=== PATIENT | female | born 1995 | race Caucasian/White ===

== ENCOUNTER 2020-08-03 16:59 | Emergency (ER) | payer OTHER ==
[~2020-08-03] VITALS: Ht 160 cm; Wt 61.7 kg
[2020-08-03] MEDS ORDERED: PRENA1 TRUE CO1 EACH PO (17:10)
== END 2020-08-03 22:48 | disposition home or self-care (01) ==
LOC: ER 16:59
DX: N93.8 Other specified abnormal uterine and vaginal bleeding (principal); R10.2 Pelvic and perineal pain; O20.0 Threatened abortion; Z3A.01 Less than 8 weeks gestation of pregnancy

== ENCOUNTER 2025-03-17 08:34 | Outpatient (CLI) | payer OTHER ==
[~2025-03-17 08:34] MED LIST: PRENA1 TRUE CO1 EACH PO
== END 2025-03-17 08:35 | disposition home or self-care (01) ==
LOC: PRENATAL 08:34
PROVIDERS: ATTEND Obstetrics & Gynecology Maternal & Fetal Medicine
DX: O44.02 Complete placenta previa NOS or without hemorrhage, second trimester (principal); Z3A.26 26 weeks gestation of pregnancy

== ENCOUNTER 2025-05-09 08:17 | Outpatient (CLI) | payer OTHER | END 2025-05-09 08:18 | disposition home or self-care (01) | LOC: PRENATAL 08:17 | PROVIDERS: ATTEND Obstetrics & Gynecology Maternal & Fetal Medicine | DX: O26.843 Uterine size-date discrepancy, third trimester (principal); O36.8130 Decreased fetal movements, third trimester, not applicable or unspecified; Z3A.34 34 weeks gestation of pregnancy ==